=== PATIENT | female | born 1990 | race Caucasian/White ===

== ENCOUNTER 2017-01-02 23:06 | Emergency (ER) | payer OTHER ==
[~2017-01-02] VITALS: Ht 180.3 cm; Wt 122.5 kg
[~2017-01-02 23:06] MED LIST: BACTRIM DS TAB1 EACH PO; CEPHALEXIN500 MG PO; CHANTIX1 MG PO; GABAPENTIN300 MG PO; KEFLEX500 MG PO; NORCO 5-325 TA1 EACH PO; TUSSIN100 MG/51 PO; TYLENOL325 MG PO; VITAFOL-OB+DHA1 EACH PO; ZANTAC150 MG PO
[2017-01-03] MEDS ORDERED: TRAMADOL HCL50 MG PO (00:17)
[2017-01-03] MEDS ORDERED: CRUTCH1 EACH (00:18)
== END 2017-01-03 00:40 | disposition home or self-care (01) ==
LOC: ED 23:06
DX: S93.401A Sprain of unspecified ligament of right ankle, initial encounter (principal); F17.200 Nicotine dependence, unspecified, uncomplicated; X50.1XXA Overexertion from prolonged static or awkward postures, initial encounter; Z85.89 Personal history of malignant neoplasm of other organs and systems
CPT/HCPCS: 73610; 99283

== ENCOUNTER 2018-08-29 06:50 | Emergency (ER) | payer OTHER ==
[~2018-08-29] VITALS: Ht 182.9 cm; Wt 136.1 kg
--- OUTSIDE RECORDS SUMMARY | ~2018-08-29 | XMS | Clinical Summary ---
Demographics + + + | Address | [address] | | | [place] [address] | + + + | Home Phone | | + + + | Preferred Language | Unknown | + + + | Marital Status | Single | + + + | Temple Affiliation | 1013 | + + + | Race | Unknown | + + + | Ethnic Group | Unknown | + + + Author + + + | Author | [facility] | | | and [place] | + + + | Organization | [facility] | | | and [place] | + + + | Address | Unknown | + + + | Phone | Unavailable | + + + Support + + +---------+ + | Name | Relationship | Address | Phone | + + +---------+ + | Iban Ca | ECON | Unknown | | + + +---------+ + Care Team Providers + +------+ + | Care Imager Name | Role | Phone | + +------+ + | Beckie Mark MD | PP | Unavailable | + +------+ + Allergies No Known Allergies Current Medications + + +--------+---------+------+------+-------+ | Prescription | Sig. | Disp. | Refills | Star | End | Statu | | | | | | t | Date | s | | | | | | Date | | | + + +--------+---------+------+------+-------+ | | Take 1-2 tablets by | 15 | 0 | 03/2 | | Activ | | HYDROcodone-acetamin | mouth EVERY 4 TO 6 | tablet | | 9/20 | | e | | ophen (NORCO) 5-325 | HOURS NEEDED for | | | 16 | | | | mg per tablet | Pain. | | | | | | + + +--------+---------+------+------+-------+ Active Problems Not on file Social History + + + +--------+------+ | Tobacco Use | Types | Packs/Day | Years | Date | | | | | Used | | + + + +--------+------+ | Current Every Day | Cigarettes | 0.5 | 12 | | | Smoker | | | | | + + + +--------+------+ + +---+---+---+ | Smokeless Tobacco: | | | | | Never Used | | | | + +---+---+---+ + + +---------+ + | Alcohol Use | Drinks/We | oz/Week | Comments | | | ek | | | + + +---------+ + | Yes | | | Social. | + + +---------+ + + + + | Sex Assigned at | Date Recorded | | | | + + + | Not on file | | + + + Last Filed Vital Signs + + + + | Vital Sign | Reading | Time Taken | + + + + | Blood Pressure | 117/68 | 08/23/2015454 PDT | + + + + | Pulse | 65 | 08/23/2015454 PDT | + + + + | Temperature | 35.9 C (96.6 F) | 08/23/2015454 PDT | + + + + | Respiratory Rate | 18 | 08/23/2015454 PDT | + + + + | Oxygen Saturation | 91% | 08/23/2015454 PDT | + + + + | Inhaled Oxygen | - | - | | Concentration | | | + + + + | Weight | 117.9 kg (260 lb) | 08/23/2015331 PDT | + + + + | Height | 182.9 cm (6') | 08/23/2015331 PDT | + + + + | Body Mass Index | 35.26 | 08/23/2015 0332 PDT | + + + + Plan of Treatment + + + + + | Health Maintenance | Due Date | Last Done | Comments | + + + + + | Vaccine: | | | | | Dtap/Tdap/Td (1 - | 9 | | | | Tdap) | | | | + + + + + | Cervical Cancer | | | | | Screening (Pap) | 1 | | | + + + + + | Vaccine: Influenza | | | | | (#1) | 8 | | | + + + + + Results Not on filefrom Last 3 Months Insurance + +--------+ +--------+ +---------+ | Payer | Benefi | Subscriber | Type | Phone | Address | | | t Plan | ID | | | | | | / | | | | | | | Group | | | | | + +--------+ +--------+ +---------+ | [employer] | MODA | [id number] | Medica | [phone]- | | | MEDICAID HMO | HEALTH | | id | [id number] | | | | MDCD | | | | | | | [place]MO [place] | | | | | + +--------+ +--------+ +---------+ + +--------+ +--------+ + + | Guarantor Name | Accoun | Relation to | Date | Phone | Billing Address | | | t Type | Patient | of | | | | | | | | | | + +--------+ +--------+ + + | ARMANDO CHAPPELL | Person | Self [birth year] | Home: | [address] | | [place] | al/[place] | | 1990 | [phone] | [place] [address] | | | santos | | | [phone] | | + +--------+ +--------+ + +"
--- OUTSIDE RECORDS SUMMARY | ~2018-08-29 | XMS | Clinical Summary ---
Demographics + + + | Address | [address] | | | [place] [address] | + + + | Home Phone | | + + + | Preferred Language | Unknown | + + + | Marital Status | Single | + + + | Islam Affiliation | 1013 | + + + | Race | Unknown | + + + | Ethnic Group | Unknown | + + + Author + + + | Author | [facility] | | | and [place] | + + + | Organization | [facility] | | | and [place] [...] Team Providers + +------+ + | Care Filtrose Crusher Name | Role | Phone | + [...] | [employer] | MODA | [id number] | Medica | [phone]- | | | [...] | 1990 | [phone] | [place] [address] | | | santos | | | [phone] | | + +--------+ +--------+ + +"
[~2018-08-29 06:50] MED LIST changes: +CRUTCH1 EACH; +TRAMADOL HCL50 MG PO
[2018-08-29] MEDS ORDERED: ABILIFY10 MG PO (07:02)
[2018-08-29] MEDS ORDERED: DIFLUCAN200 MG PO (07:11)
== END 2018-08-29 07:25 | disposition home or self-care (01) ==
LOC: ED 06:50
DX: B37.9 Candidiasis, unspecified (principal); E11.9 Type 2 diabetes mellitus without complications; Z85.41 Personal history of malignant neoplasm of cervix uteri; F17.200 Nicotine dependence, unspecified, uncomplicated
CPT/HCPCS: 99282

== ENCOUNTER 2018-11-15 21:12 | Emergency (ER) | payer OTHER ==
[~2018-11-15] VITALS: Ht 182.9 cm; Wt 145.2 kg
[~2018-11-15 21:12] MED LIST changes: +ABILIFY10 MG PO; +DIFLUCAN200 MG PO
[2018-11-15] MEDS ORDERED: LATUDA20 MG (21:26)
[2018-11-15] MEDS ORDERED: DIFLUCAN100 MG PO (21:39)
== END 2018-11-15 21:52 | disposition home or self-care (01) ==
LOC: ED 21:12
DX: H10.9 Unspecified conjunctivitis (principal); L30.4 Erythema intertrigo; E11.9 Type 2 diabetes mellitus without complications; F17.200 Nicotine dependence, unspecified, uncomplicated; Z85.41 Personal history of malignant neoplasm of cervix uteri
CPT/HCPCS: 99283

== ENCOUNTER 2020-06-05 18:51 | Observation (INO) | payer OTHER ==
[~2020-06-05] VITALS: Ht 180.3 cm; Wt 145.6 kg
--- NOTE | ~2020-06-05 | HP ---
[facility] [address] [place], [place] [address] Draft ADMISSION DATE: 06/06/2020 CHIEF COMPLAINT: Abdominal cramping. HISTORY OF PRESENT ILLNESS: The patient presented to the ED complaining of lower abdominal cramping. She had been seen over the last 3 to 4 days as an outpatient at Dr. Mark's office for positive test without intrauterine identified. Her initial ultrasound was performed on June 02 and was significant for normal size and shape of uterus without intrauterine gestational sac. Endometrium was noted to be smooth and regular. Left ovary appears normal in size and shape and right ovary has 3.6 x 3.7 cm simple cyst. No free fluid was seen at that time. Her HCG measured 1887 on June 02 and on June 03 measured to be 2099. When she came in to the ED, the patient was a difficult historian and simply complained of pain and cramping. She was noted to be hemodynamically stable. It did take over 6 hours for blood work to be obtained. Her hemoglobin was noted to be 13.0 with a white cell count of 9.8. CMP was unremarkable except for glucose of 113 and quantitative HCG at that point was 2026. Urinalysis was performed, negative for urinary tact infection. Pelvic ultrasound was repeated and at this time intrauterine gestational sac was visualized measuring 7 weeks 3 days but was noted to be empty. Left ovary was normal in size and shape. Right ovary was noted to be 7 cm x 5 cm containing a 4.5 x 3.5 4.7 cm complex cyst consistent with a hemorrhagic cyst. There was also noted to be some free fluid in the pelvis with a clot in the right adnexal region measuring 4 cm x 2 cm. There is notably no structure consistent with ectopic , however, vascular flow could not be well seen to establish whether or not a right ovarian torsion was present. At the time workup was completed, the patient was complaining of fatigue and was difficult to arouse. Upon my exam, she was extremely difficult to arouse and HPI was extremely limited. She was responsive to her name with sternal rub and would be awake for 1 to 2 words before closing her eyes again. At that point, she only reported the cramping and that had brought her in. Hemoglobin was repeated in the morning and was noted to be stable with hemoglobin of 12.0, white cell count down to 6.4 consistent with dilutional effect and rehydration. Of note, her urine drug screen which is at around the morning to the evening sample was positive for marijuana, MDMA and both amphetamines and methamphetamines. 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 PAST MEDICAL HISTORY: Significant for remote history of ovarian cyst, treated with ovarian cystectomy, recurrent drug use, PTSD for which she reports being prescribed medical marijuana, incarceration most recently for drug use. PATIENT NAME: ARMANDO HACKETT HISTORY AND PHYSICAL DATE OF : 88 REPORT #: [id number] PHYSICIAN: MEHDI ANG DO PCP: JOSE MARK MD REPORT IS CONFIDENTIAL AND NOT TO BE RELEASED WITHOUT AUTHORIZATION [facility] [address] [place] [id number] Draft PAST SURGICAL HISTORY: Significant only for ovarian cystectomy. FAMILY HISTORY: Significant for paternal diabetes, end-stage renal failure, multisubstance abuse in both parents. REVIEW OF SYSTEMS: Positive for pelvic pain. Negative for vaginal bleeding and vaginal discharge. Negative for difficulty breathing, chest pain, shortness of breath, cough, fever, or chills. Negative for nausea, vomiting, constipation or diarrhea. Negative for dysuria, hematuria, urinary urgency or frequency. PHYSICAL EXAMINATION: GENERAL: Morbidly obese female, difficult to awaken. Appears stated age. HEENT: Normocephalic, atraumatic. External ocular motions are intact. Pupils constricted and reactive to light. NECK: Normal range of motion. No thyromegaly or lymphadenopathy. CARDIAC: Regular rate and rhythm. No clicks, murmurs or rubs. LUNGS: Clear to auscultation bilaterally. No wheeze, rhonchi or rales. ABDOMEN: Tender to palpation suprapubically, otherwise nontender. No rebound. No guarding. Exam limited by body habitus. PELVIC: Deferred due to the patient's level of consciousness and hemodynamic stability. EXTREMITIES: Peripheral pulses, intact radial and dorsalis pedis pulses. Negative bilateral lower extremity edema. NEURO: Oriented to self and place, not oriented to day of week. IMPRESSION: A 29-year-old G4, P1-0-2-1 with anembryonic , hemodynamically stable, HCG downtrending. Pain significantly improved per patient compared to arrival. Multisubstance abuse, per patient, she is trying to get clean. She last used methamphetamines on and discontinued when she found out that she was , uses THC for PTSD. Denies history of MDMA use. PLAN: Exam repeated over a course of several hours due to the patient's level of consciousness. She demonstrate as an improvement, awareness and was much more responsive to further questioning 6 hours after initial admission. She stated her pain was much more tolerable than when she had been in the ED and had not received any additional pain medications since admission from the ED. Discussed residual concern for bleeding hemorrhagic cyst versus ectopic and stressed the importance of close follow as an outpatient at Dr. Mark's office over the next few days. The patient verbalized PATIENT NAME: ARMANDO HACKETT HISTORY AND PHYSICAL DATE OF : [birth year] REPORT #: [id number] PHYSICIAN: MEHDI ANG DO PCP: JOSE MARK MD REPORT IS CONFIDENTIAL AND NOT TO BE RELEASED WITHOUT AUTHORIZATION [address], [place] [address] Draft understanding, agreement with plan and anticipate discharge to home in stable and improved condition later today. DO MADAN Romero/BENJA /[id number] Copies: ~ PATIENT NAME: ARMANDO HACKETT HISTORY AND PHYSICAL DATE OF : 88 REPORT #: [id number] PHYSICIAN: MEHDI ANG DO PCP: JOSE MARK MD REPORT IS CONFIDENTIAL AND NOT TO BE RELEASED WITHOUT AUTHORIZATION
[~2020-06-05 18:51] MED LIST changes: +CILOXAN5 ML OD; +DIFLUCAN100 MG PO; +LATUDA20 MG
--- OUTSIDE RECORDS SUMMARY | 2020-06-05 18:54 | XMS ---
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 event(s) in the past 18 months Most recent security events: Elopement at [facility] 01/04/2019 19:08 - Other Details: PATIENT LEFT AMA CRITERIA MET - Group Notification - [facility] - Has Care Guidelines - PDMP CARE PROVIDERS NANO HOLT Nurse Practitioner: Family 12/31/2018-Current PHONE: [phone] Care Guidelines exist for the following facilities: [facility] [place] ( 11/18/2018 ) Care History Medical/Surgical 01/06/2019 [facility] - EOIPA REFERRAL MADE- PATIENT HAS EOCCO-DOES NOT HAVE A PCP- DOES NOT UTILIZE THE WALK IN CLINIC FOR NON EMERGENT MEDICAL NEEDS. 12/31/2018 [facility] - Patient is currently established with [facility]. If patient is seen in the ED during business hours. Please contact CHWs at [facility]. Care Recommendation: This patient has had 5 or more Emergency Department visits in the last 12 months.\T\nbsp; Patient requires education on the scope and purpose of the ED as an acute care provider not a Primary Care Provider and should not be utilized for chronic conditions.\T\nbsp; These are guidelines and the provider should exercise clinical judgment when providing care. [place] VISIT COUNT (12 MO.) [address] Linette Johnson 1 [facility] [place] TOTAL 4 NOTE: Visits indicate total known visits. ED/UCC VISIT TRACKING (12 MO.) 06/05/2020 18:53 [facility] [place] TYPE: Emergency COMPLAINT: - CRAMPING 01/16/2020 17:30 [facility] [place] TYPE: Emergency DIAGNOSES: - Medication Refill - Contusion of left knee, initial encounter - knee pain 01/15/2020 22:15 [facility] Janessa MCDONNELL TYPE: Emergency DIAGNOSES: - Unspecified injury of left lower leg, initial encounter - Knee Injury - left knee pain, fall 12/27/2019 15:53 [facility] Janessa MCDONNELL TYPE: Emergency DIAGNOSES: - Other general symptoms and signs - ambulance bay-- fever; cough; sob INPATIENT VISIT TRACKING (12 MO.) No inpatient visits to display in this time frame [email or web address]
--- NOTE | 2020-06-06 04:15 | NUR ---
pt ARRIVED TO FLOOR. VERY DROWSY. ROUSED TO VOICE. ABLE TO TRANSFER SELF FROM STRETCHER TO BED. PROVIDED WARM BLANKET. VITALS DONE. IN ROOM TO COMPLETE ASSESSMENT.
--- NOTE | 2020-06-06 05:40 | NUR ---
pt VERY DROWSY REQUIRED CONSTANT VERBAL STIMULI TO MAINTAIN CONVERSATION. DID NOT ANSWER MOST QUESTIONS. KEPT FALLING BACK TO SLEEP. pt RATED PAIN 8/10, PUPILS SMALL, REACTIVE TO LIGHT. IVF INFUSING PER ORDERS. CALL LIGHT WITHIN REACH.
--- NOTE | 2020-06-06 06:50 | NUR ---
ROUNDED ON pt. RESTING IN BED WITH EYES CLOSED, RESPIRATIONS REGULAR AND LABORED. CALL LIGHT WITHIN REACH.
--- NOTE | 2020-06-06 07:25 | NUR ---
BEDSIDE HANDOFF REPORT RECEIVED FROM CERTIFIED OPHTHALMIC ASSISTANT RN. PT EXTREMELY DROWSY. DR. ANG TO BEDSIDE, VERBAL ORDER FRO STAT HEMOGRAM. PLAN TO RE-EVALUATE PT LATER AND PERFORM PELVIC EXAM WHEN PT IS MORE ALERT.
--- NOTE | 2020-06-06 08:35 | NUR ---
PT CONTINUES TO BE EXTREMELY DROWSY, WILL RESPOND AFTER SEVERAL VERBAL ATTEMPTS TO WAKE UP. PT ON ROOM AIR, LUNG SOUNDS CLEAR. PT DENIES NAUSEA, BOWEL TONES ACTIVE. PT RECEIVING LR AT 125ML/HR, NPO AT THIS TIME. CMS INTACT, WITHOUT EDEMA. BP 108/44, HR 72. CALL PLACED TO DR. ANG TO REPORT BP AND DRUG SCREEN RESULTS, NO NEW ORDERS AT THIS TIME.
--- NOTE | 2020-06-06 08:38 | NUR ---
PATIENT RESTING IN BED, EYES CLOSED. RN AT BEDSIDE FOR ASSESSMENT. PATIENT UNABLE TO KEEP EYES OPEN LONGER THAN COUPLE SECONDS. VERY DELAYED IN ANSWERING RNS QUESTIONS.
--- NOTE | 2020-06-06 10:04 | NUR ---
PATIENT RESTING IN BED, EYES CLOSED, ROUSED TO VOICE. VITALS CHARTED. PATIENT UNABLE TO KEEP EYES OPEN, REQUIRES REPEATED VERBAL COMANDS. PATIENT STILL DENIES NEED FOR TOILET, CALL LIGHT IN REACH
--- NOTE | 2020-06-06 11:07 | NUR ---
KYLEE DOYLE SUGGESTED I COME BACK LATER. PT HAVING DIFFICULTY STAYING AWAKE. WILL FOLLOW
--- NOTE | 2020-06-06 12:09 | NUR ---
PT CONTINUES TO BE DROWSY, AROUSABLE TO VOICE, PT DENIES PAIN. PT DENIES NEEDS AT THIS TIME.
== END 2020-06-06 14:28 | disposition home or self-care (01) ==
LOC: ED 18:51 → MS 18:54
PROVIDERS: ADMIT Obstetrics & Gynecology; ATTEND Obstetrics & Gynecology
DX: O02.0 Blighted ovum and nonhydatidiform mole (principal); O08.9 Unspecified complication following an ectopic and molar pregnancy; O99.321 Drug use complicating pregnancy, first trimester; F19.10 Other psychoactive substance abuse, uncomplicated; O99.211 Obesity complicating pregnancy, first trimester; E66.01 Morbid (severe) obesity due to excess calories; O99.331 Smoking (tobacco) complicating pregnancy, first trimester; F17.200 Nicotine dependence, unspecified, uncomplicated; F43.10 Post-traumatic stress disorder, unspecified; Z98.890 Other specified postprocedural states; Z20.822 Contact with and (suspected) exposure to COVID-19; O09.291 Supervision of pregnancy with other poor reproductive or obstetric history, first trimester; O26.21 Pregnancy care for patient with recurrent pregnancy loss, first trimester; Z3A.01 Less than 8 weeks gestation of pregnancy; Z87.42 Personal history of other diseases of the female genital tract
CPT/HCPCS: 36415; 76801; 76817; 80053; 81001; 84702; 85025; 85027; 87491; 87591; 96374; 99285-25; C9803; G0378; J1170; J7030; J7121; U0003

== ENCOUNTER 2021-06-10 02:36 | Emergency (ER) | payer OTHER ==
[~2021-06-10] VITALS: Ht 182.9 cm; Wt 156.2 kg
--- OUTSIDE RECORDS SUMMARY | 2021-06-10 02:38 | XMS ---
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 CRITERIA MET - Group Notification CARE PROVIDERS NANO HOLT Nurse Practitioner: 12/31/2018-Current PHONE: Unknown Care Guidelines exist for the following facilities: [facility] ( 07/11/2020 ) [place] VISIT COUNT (12 MO.) [address] [facility] [address] TOTAL 3 NOTE: Visits indicate total known visits. ED/UCC VISIT TRACKING (12 MO.) 06/10/2021 02:37 [facility] [place] TYPE: Emergency COMPLAINT: - VOMITING 02/23/2021 14:[address] [facility]: Emergency DIAGNOSES: - right arm pain, water retention - Procedure and treatment not carried out due to patient leaving prior to being seen by health care provider - Wrist Pain - Leg Swelling 08/02/2020 14:[address] [facility] [facility] [place] TYPE: Emergency COMPLAINT: - SWOLLEN R MIDDLE FINGER INPATIENT VISIT TRACKING (12 MO.) No inpatient visits to display in this time frame [email or web address]
[2021-06-10] MEDS ORDERED: ONDANSETRON ODT8 MG PO (03:57)
== END 2021-06-10 04:17 | disposition home or self-care (01) ==
LOC: ED 02:36
DX: R11.2 Nausea with vomiting, unspecified (principal); Z85.41 Personal history of malignant neoplasm of cervix uteri; F17.200 Nicotine dependence, unspecified, uncomplicated; Z88.1 Allergy status to other antibiotic agents
CPT/HCPCS: 99283; A9270

== ENCOUNTER 2022-01-14 22:15 | Emergency (ER) | payer OTHER ==
[~2022-01-14] VITALS: Ht 182.9 cm; Wt 156.0 kg
[~2022-01-14 22:15] MED LIST changes: +ONDANSETRON ODT8 MG PO
--- OUTSIDE RECORDS SUMMARY | 2022-01-14 22:18 | XMS ---
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 CRITERIA MET - Group Notification CARE PROVIDERS NANO HOLT Nurse Practitioner: 12/31/2018-Current PHONE: Unknown Care Guidelines exist for the following facilities: [facility] ( 07/11/2020 ) [place] VISIT COUNT (12 MO.) 2 [facility] 1 [facility] [address] [facility] 2 [facility] TOTAL 6 NOTE: Visits indicate total known visits. ED/UCC VISIT TRACKING (12 MO.) 01/14/2022 22:16 [facility] [place] TYPE: Emergency COMPLAINT: - DENTAL PAIN 18WKS [facility]: Emergency DIAGNOSES: - Periorbital cellulitis - eye problem - Unspecified conjunctivitis - Encounter for supervision of normal , unspecified, second trimester 10/07/2021 20:59 [facility] TYPE: Emergency COMPLAINT: - lower back pain DIAGNOSES: - Back Pain - lower back pain 10/04/2021 18:32 [facility] TYPE: Emergency COMPLAINT: - Medical clearance - - baby has not moved in a few days DIAGNOSES: - Medical clearance - - baby has not moved in a few days - Encounter for supervision of normal , unspecified, unspecified trimester - Abdominal Cramping 06/10/2021 02:37 [facility] [place] TYPE: Emergency COMPLAINT: - VOMITING DIAGNOSES: - Allergy status to other antibiotic agents - Nicotine dependence, unspecified, uncomplicated - Personal history of malignant neoplasm of cervix uteri - Nausea with vomiting, unspecified 02/23/2021 14[facility]07 [facility] Emergency DIAGNOSES: - Wrist Pain - right arm pain, water retention - Leg Swelling - Procedure and treatment not carried out due to patient leaving prior to being seen by health care provider INPATIENT VISIT TRACKING (12 MO.) No inpatient visits to display in this time frame [id number]
[2022-01-14] MEDS ORDERED: PENICILLIN V P500 MG PO (22:33)
== END 2022-01-14 22:45 | disposition home or self-care (01) ==
LOC: ED 22:15
DX: O99.891 Other specified diseases and conditions complicating pregnancy (principal); K04.7 Periapical abscess without sinus; F17.200 Nicotine dependence, unspecified, uncomplicated; Z88.1 Allergy status to other antibiotic agents; Z3A.18 18 weeks gestation of pregnancy

== ENCOUNTER 2022-04-18 06:00 | Inpatient (IN) | payer OTHER ==
[~2022-04-18] VITALS: Ht 182.9 cm; Wt 169.6 kg
[~2022-04-18 06:00] MED LIST changes: +PENICILLIN V P500 MG PO
--- NOTE | 2022-04-18 15:14 | PR ---
[facility] [address], [place] [address] Signed Progress Notes IP Datetime Report Generated by CPN: 04/18/2022 15:14 PROGRESS NOTES: [id number] Impression: Normal Progression of Labor; Reassuring Heart Rate Procedures: Artificial ROM; Intrauterine Pressure Catheter; Scalp Electrode; Sterile Vag Exam Plan: Continue Present Management; Anticipate Vaginal Delivery Informed Consent Obtain: Vaginal Delivery VITAL SIGNS: [id number] Vital Signs: Reviewed; Within Normal Limits EXAM: [id number] Dilatation: 8.0 Effacement: 90 Station: -1 Contractions: not well picked up MEMBRANES: [id number] Comments: Pt seen and examined. Comfortable w/ epidural and intermittently sleeping between contractions. Pt reports that she thinks her "water might have broke a few days ago" but she is unsure as she is "always wet down there." RN requesting internals to aid intrapartum monitoring. No other questions or concerns. On exam, bulging membranes noted. After verbal consent obtained and vertex noted to be well applied, AROM easily performed for moderate amount of clear fluid. IUPC and FSE placed w/out difficulty. Anticipate FETUS A: [id number] FHR Baseline: 150 Variability: Minimal - >Undetectable to <=5bpm Accelerations: 10X10 FHR Category: Category II Presentation: Vertex Comments on Fetus A: not well monitored FETUS B: [id number] Signing Physician: Vamsi Jaimes DO Copies: ~ *Electronically Signed* 04/18/22 6189 VAMSI JAIMES (MARK) DO PATIENT NAME: ARMANDO HACKETT PROGRESS NOTE DATE OF : 88 PHYSICIAN: VAMSI JAIMES (JD) DO RPT #: [id number] REPORT IS CONFIDENTIAL AND NOT TO BE RELEASED WITHOUT AUTHORIZATION
--- NOTE | 2022-04-18 16:23 | PR ---
[facility] [address] [facility] [place], [place] [address] Signed Progress Notes IP Datetime Report Generated by CPN: 04/18/2022 16:23 PROGRESS NOTES: [id number] Impression: Normal Progression of Labor Procedures: Sterile Vag Exam Plan: Augmentation Informed Consent Obtain: Vaginal Delivery VITAL SIGNS: [id number] Vital Signs: Reviewed; Within Normal Limits EXAM: [id number] Dilatation: 8.0 Effacement: 90 Station: -1 Contractions: not well picked up MEMBRANES: [id number] Comments: Slow progress. I feel augmentation is needed with IV pitocin. FETUS A: [id number] FHR Baseline: 150 Variability: Minimal - >Undetectable to <=5bpm Accelerations: 10X10 FHR Category: Category II Presentation: Vertex Comments on Fetus A: not well monitored FETUS B: [id number] Signing Physician: Beckie Mark MD Copies: ~ *Electronically Signed* 04/18/22 1623 BECKIE MARK MD PATIENT NAME: ARMANDO HACKETT PROGRESS NOTE DATE OF : 88 PHYSICIAN: BECKIE MARK MD RPT #: [id number] REPORT IS CONFIDENTIAL AND NOT TO BE RELEASED WITHOUT AUTHORIZATION
--- NOTE | 2022-04-18 17:40 | PR ---
[facility] [address] [facility] [place], [place] [address] Signed Progress Notes IP Datetime Report Generated by CPN: 04/18/2022 17:40 PROGRESS NOTES: [id number] Impression: Normal Progression of Labor Procedures: Sterile Vag Exam Plan: Anesthesia Consult Informed Consent Obtain: Vaginal Delivery VITAL SIGNS: [id number] Vital Signs: Reviewed; Within Normal Limits EXAM: [id number] Dilatation: 9.0 Effacement: 90 Station: -1 Contractions: not well picked up MEMBRANES: [id number] Comments: Progressing. Will continue with redose of epidural. FETUS A: [id number] FHR Baseline: 150 Variability: Minimal - >Undetectable to <=5bpm Accelerations: 10X10 FHR Category: Category II Presentation: Vertex Comments on Fetus A: not well monitored FETUS B: [id number] Signing Physician: Beckie Mark MD Copies: ~ *Electronically Signed* 04/18/22 3228 BECKIE MARK MD PATIENT NAME: ARMANDO HACKETT PROGRESS NOTE DATE OF : 88 PHYSICIAN: BECKIE MARK MD RPT #: [id number] REPORT IS CONFIDENTIAL AND NOT TO BE RELEASED WITHOUT AUTHORIZATION
--- NOTE | 2022-04-18 18:39 | PR ---
[facility] [address] [facility] [place], [place] [address] Signed Progress Notes IP Datetime Report Generated by JOSEPH: 04/18/2022 18:39 PROGRESS NOTES: [id number] Impression: Reassuring Heart Rate Procedures: Sterile Vag Exam Plan: Anesthesia Consult Informed Consent Obtain: Vaginal Delivery VITAL SIGNS: [id number] Vital Signs: Reviewed; Within Normal Limits EXAM: [id number] Dilatation: 9.0 Effacement: 90 Station: -1 Contractions: not well picked up MEMBRANES: [id number] Comments: Still very uncomfortable. Will have anesthesia reassess. Also, she is now arnaldo very frequently and will stop pitocin. Jones bulb also seems quite large and will remove some of the fluid FETUS A: [id number] FHR Baseline: 150 Variability: Minimal - >Undetectable to <=5bpm Accelerations: 10X10 FHR Category: Category II Presentation: Vertex Comments on Fetus A: not well monitored FETUS B: [id number] Signing Physician: Beckie Mark MD Copies: ~ *Electronically Signed* 04/18/22 1839 BECKIE MARK MD PATIENT NAME: ARMANDO HACKETT PROGRESS NOTE DATE OF : 88 PHYSICIAN: BECKIE MARK MD RPT #: [id number] REPORT IS CONFIDENTIAL AND NOT TO BE RELEASED WITHOUT AUTHORIZATION
--- NOTE | 2022-04-19 07:27 | PR ---
[facility] [address] [place], [place] [address] Signed PP Progress Notes Datetime Report Generated by CPN: 04/19/2022 07:26 SUBJECTIVE: [id number] Pain: Within Normal Limits Vital Signs: [id number] Vital Signs: Reviewed Notable Details: Tmax 101.8 Cardiovascular: Not Done Respiratory: Not Done Abdomen/Uterus: Abnormal Lochia: Not Done Vulva/Perineum: Not Done Breasts: Not Done CVA Tenderness: Not Done Extremities: Normal Incision: Not Applicable Progress: Not Applicable Exam Comments: Fundus firm, NT @ U. H/H 11.1/13.1, WBC 7.7, plat 208k IMPRESSION/PLAN/PROCEDURES: [id number] Impression: Normal Progression; Increased Temperature Other Impression: very difficult to arouse Plan: Continue Present Management Procedures: None Progress Notes: Very difficult to arouse and has not cared for the baby overnight. Her temp was elevated and with hx of UTI Ancef was ordered but U/A looks OK and temp improved. Will resume her prior course of Keflex for her UTI. Signing Physician: Beckie Mark MD Copies: ~ *Electronically Signed* 04/19/22725 BECKIE MARK MD PATIENT NAME: ARMANDO HACKETT PROGRESS NOTE DATE OF : 88 PHYSICIAN: BECKIE MARK MD RPT #: [id number] REPORT IS CONFIDENTIAL AND NOT TO BE RELEASED WITHOUT AUTHORIZATION
--- NOTE | 2022-04-20 08:11 | PR ---
[facility] [address] [place], [place] [address] Signed PP Progress Notes Datetime Report Generated by CPN: 04/20/2022 08:11 SUBJECTIVE: [id number] Pain: Within Normal Limits Vital Signs: [id number] Vital Signs: Reviewed; Within Normal Limits Notable Details: Tmax 101.8 Cardiovascular: Not Done Respiratory: Not Done Abdomen/Uterus: Abnormal Lochia: Normal Vulva/Perineum: Not Done Breasts: Not Done CVA Tenderness: Not Done Extremities: Normal Incision: Not Applicable Progress: Not Applicable Exam Comments: Fundus firm, NT @ U-1. IMPRESSION/PLAN/PROCEDURES: [id number] Impression: Normal Progression Other Impression: very difficult to arouse Plan: Discharge Procedures: Antibiotics Progress Notes: Doing well without further fever. She now states she has been using buprenorphine off and on as needed. She does not know the dose of the medication. She is otherwise ready for D/C though baby will remain for further observation. Signing Physician: Beckie Mark MD Copies: ~ *Electronically Signed* 04/20/22810 BECKIE MARK MD PATIENT NAME: ARMANDO HACKETT PROGRESS NOTE DATE OF : 88 PHYSICIAN: BECKIE MARK MD RPT #: [id number] REPORT IS CONFIDENTIAL AND NOT TO BE RELEASED WITHOUT AUTHORIZATION
== END 2022-04-20 08:30 | disposition home or self-care (01) | DRG 806 ==
LOC: FBCO 06:00 → FBC 06:20
PROVIDERS: ADMIT Obstetrics & Gynecology; ATTEND Obstetrics & Gynecology
PROC: 10E0XZZ Delivery of Products of Conception, External Approach (ICD-10-PCS; principal; 2022-04-18)
PROC: 10H07YZ Insertion of Other Device into Products of Conception, Via Natural or Artificial Opening (ICD-10-PCS; 2022-04-18)
PROC: 10907ZC Drainage of Amniotic Fluid, Therapeutic from Products of Conception, Via Natural or Artificial Opening (ICD-10-PCS; 2022-04-18)
PROC: 00HU33Z Insertion of Infusion Device into Spinal Canal, Percutaneous Approach (ICD-10-PCS; 2022-04-18)
PROC: 3E0R3BZ Introduction of Anesthetic Agent into Spinal Canal, Percutaneous Approach (ICD-10-PCS; 2022-04-18)
DX: O60.13X0 Preterm labor second trimester with preterm delivery third trimester, not applicable or unspecified (principal); O23.43 Unspecified infection of urinary tract in pregnancy, third trimester; Z37.0 Single live birth; O99.324 Drug use complicating childbirth; O99.824 Streptococcus B carrier state complicating childbirth; F12.90 Cannabis use, unspecified, uncomplicated; F15.90 Other stimulant use, unspecified, uncomplicated; Z20.822 Contact with and (suspected) exposure to COVID-19; Z67.20 Type B blood, Rh positive; Z3A.36 36 weeks gestation of pregnancy; O99.334 Smoking (tobacco) complicating childbirth; F17.210 Nicotine dependence, cigarettes, uncomplicated; O99.214 Obesity complicating childbirth; E66.01 Morbid (severe) obesity due to excess calories
CPT/HCPCS: 36415; 81001; 81003; 85027; 86850; 86900; 86901; 87502; A9270; J0690; J2274; J2405; J2540; J2590; J2795; J3010; J7121; U0003

== ENCOUNTER 2023-10-06 23:07 | Emergency (ER) | payer OTHER ==
[~2023-10-06] VITALS: Ht 185.4 cm; Wt 159.5 kg
[2023-10-06] MEDS ORDERED: DIPHTH,PERTUSS(ACELL),TET VAC 0.5 ML SYRINGE IM ONE (23:30)
[2023-10-06] MEDS ORDERED: TETANUS-DIPHTHERIA TOXOIDS/PF 0.5 ML VIAL IM ONE (23:30)
--- OUTSIDE RECORDS SUMMARY | 2023-10-06 23:52 | XMS ---
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 ED/UCC VISIT TRACKING (12 MO.) 10/06/2023 23:08 [facility] [place] TYPE: Emergency COMPLAINT: - LEFT ANKLE INJURY INPATIENT VISIT TRACKING (12 MO.) No inpatient visits to display in this time frame [id number]
[2023-10-07 00:13] VITALS: BP 154/92
== END 2023-10-07 00:14 | disposition home or self-care (01) ==
LOC: ED 23:07
DX: S90.511A Abrasion, right ankle, initial encounter (principal); M25.572 Pain in left ankle and joints of left foot; F17.200 Nicotine dependence, unspecified, uncomplicated; W26.8XXA Contact with other sharp object(s), not elsewhere classified, initial encounter; Z23 Encounter for immunization; Z88.1 Allergy status to other antibiotic agents
CPT/HCPCS: 73610; 90715

== ENCOUNTER 2024-02-03 20:27 | Emergency (ER) | payer OTHER ==
[~2024-02-03] VITALS: Ht 185.4 cm; Wt 156.4 kg
--- OUTSIDE RECORDS SUMMARY | 2024-02-03 20:34 | XMS ---
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 No recent Security Events currently on file CRITERIA MET - Group Notification CARE PROVIDERS NANO HOLT Nurse Practitioner: Family 12/31/2018-Current PHONE: Unknown -Colette+ Dentist: Sponge Buffer [facility] [place][Note 2] PHONE: [phone] -[facility]: Sponge Buffer [facility] PHONE: [phone] [facility]/Center: [facility] Current \F\ [facility] PHONE: [phone] Care Guidelines exist for the following facilities: [facility] ( 11/18/2018 ) [place] VISIT COUNT (12 MO.) [address] [facility] TOTAL 2 NOTE: Visits indicate total known visits. ED/UCC VISIT TRACKING (12 MO.) 02/03/2024 20:28 [facility] [place] TYPE: Emergency COMPLAINT: - ALLERGIC REACTION 10/06/2023 23:08 [facility] [place] TYPE: Emergency COMPLAINT: - LEFT ANKLE INJURY DIAGNOSES: - Abrasion, right ankle, initial encounter - Allergy status to other antibiotic agents - Contact with other sharp object(s), not elsewhere classified, initial encounter - Encounter for immunization - Nicotine dependence, unspecified, uncomplicated - Pain in left ankle and joints of left foot INPATIENT VISIT TRACKING (12 MO.) No inpatient visits to display in this time frame [email or web address]
[2024-02-03] MEDS ORDERED: TETRACAINE HCL 0.5% 4 ML BTL OU SCH (22:15)
[2024-02-03] MEDS ORDERED: POLYMYXIN B-TMP10 ML OPTH (22:15)
[2024-02-03 22:42] VITALS: BP 155/83
== END 2024-02-03 22:43 | disposition home or self-care (01) ==
LOC: ED 20:27
DX: H10.9 Unspecified conjunctivitis (principal); F17.200 Nicotine dependence, unspecified, uncomplicated; Z88.1 Allergy status to other antibiotic agents
CPT/HCPCS: 99283

== ENCOUNTER 2024-08-03 17:20 | Emergency (ER) | payer OTHER ==
[~2024-08-03] VITALS: Ht 185.4 cm; Wt 154.7 kg
[~2024-08-03 17:20] MED LIST changes: +POLYMYXIN B-TMP10 ML OPTH
--- OUTSIDE RECORDS SUMMARY | 2024-08-03 17:27 | XMS ---
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/Center: [facility] Current [facility] PHONE: [phone] Care Guidelines exist for the following facilities: [facility] ( 11/18/2018 ) [place] VISIT COUNT (12 MO.) 3 [facility] TOTAL 3 NOTE: Visits indicate total known visits. ED/UCC VISIT TRACKING (12 MO.) 08/03/2024 17:20 [facility] [place] TYPE: Emergency COMPLAINT: - SPIDER BITE 02/03/2024 20:28 [facility] [place] TYPE: Emergency COMPLAINT: - ALLERGIC REACTION DIAGNOSES: - Allergy status to other antibiotic agents - Nicotine dependence, unspecified, uncomplicated - Unspecified conjunctivitis 10/06/2023 23:08 [facility] [place] TYPE: Emergency [...] visits to display in this time frame [id number]
[2024-08-03] MEDS ORDERED: ACETAMINOPHEN 500 MG TAB PO ONE (18:00)
[2024-08-03 20:12] VITALS: BP 131/77
[2024-08-04] MEDS ORDERED: TRAMADOL HCL50 MG PO (20:11)
[2024-08-04] MEDS ORDERED: HIBICLENS118 ML TOP (20:35)
== END 2024-08-03 20:12 | disposition left against medical advice (07) ==
LOC: ED 17:20
DX: T63.301A Toxic effect of unspecified spider venom, accidental (unintentional), initial encounter (principal); Z53.21 Procedure and treatment not carried out due to patient leaving prior to being seen by health care provider
CPT/HCPCS: A9270

== ENCOUNTER 2024-08-04 19:10 | Emergency (ER) | payer OTHER ==
[~2024-08-04] VITALS: Ht 185.4 cm; Wt 154.7 kg
--- OUTSIDE RECORDS SUMMARY | 2024-08-04 19:17 | XMS ---
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 ED/UCC VISIT TRACKING (12 MO.) 08/04/2024 19:11 [facility] [place] TYPE: Emergency COMPLAINT: - SPIDER BITE 08/03/2024 17:20 [facility] [place] TYPE: Emergency COMPLAINT: - SPIDER BITE DIAGNOSES: - Encounter for change or removal of nonsurgical wound dressing - Procedure and treatment not carried out due to patient leaving prior to being seen by health care provider - Toxic effect of unspecified spider venom, accidental (unintentional), initial encounter 02/03/2024 20:28 [facility] [place] TYPE: Emergency [...] visits to display in this time frame [id number]
[2024-08-04] MEDS ORDERED: TRAMADOL HCL50 MG PO (20:11)
[2024-08-04] MEDS ORDERED: TRAMADOL HCL 50 MG HOME.PACK PO ONE (20:15)
[2024-08-04] MEDS ORDERED: DOXYCYCLINE HYCLATE 100 MG HOME.PACK PO ONE (20:15)
[2024-08-04] MEDS ORDERED: HIBICLENS118 ML TOP (20:35)
[2024-08-04 20:36] VITALS: BP 149/92
== END 2024-08-04 20:40 | disposition home or self-care (01) ==
LOC: ED 19:10
DX: L03.319 Cellulitis of trunk, unspecified (principal); L02.219 Cutaneous abscess of trunk, unspecified; F17.200 Nicotine dependence, unspecified, uncomplicated; Z88.1 Allergy status to other antibiotic agents
CPT/HCPCS: 99282; A9270

== ENCOUNTER 2024-12-09 02:29 | Emergency (ER) | payer OTHER ==
[~2024-12-09] VITALS: Ht 185.4 cm; Wt 154.7 kg
[~2024-12-09 02:29] MED LIST changes: +HIBICLENS118 ML TOP
--- OUTSIDE RECORDS SUMMARY | 2024-12-09 02:32 | XMS ---
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 ED/UCC VISIT TRACKING (12 MO.) 12/09/2024 02:30 [facility] [place] TYPE: Emergency COMPLAINT: - SKIN ISSUE 08/04/2024 19:11 [facility] [place] TYPE: Emergency COMPLAINT: - SPIDER BITE DIAGNOSES: - Allergy status to other antibiotic agents - Cellulitis of trunk, unspecified - Cutaneous abscess of trunk, unspecified - Nicotine dependence, unspecified, uncomplicated 08/03/2024 17:20 [facility] [place] TYPE: Emergency [...] Nicotine dependence, unspecified, uncomplicated - Unspecified conjunctivitis INPATIENT VISIT TRACKING (12 MO.) No inpatient visits to display in this time frame [id number]
[2024-12-09] MEDS ORDERED: SUBLOCADE300 MG/1.5 SQ (02:44)
[2024-12-09] MEDS ORDERED: BUPRENORPHINE-1 EACH SL (02:44)
[2024-12-09] MEDS ORDERED: NEOMYCIN/POLYMYXIN/HYDROCORT 10 ML HOME.PACK OTIC ONE (03:00)
[2024-12-09] MEDS ORDERED: FUROSEMIDE 40 MG TAB PO ONE (03:00)
[2024-12-09] MEDS ORDERED: DOXYCYCLINE HYCLATE 100 MG HOME.PACK PO ONE (03:00)
[2024-12-09] MEDS ORDERED: IBUPROFEN 600 MG TAB PO ONE (03:00)
[2024-12-09] MEDS ORDERED: LASIX20 MG PO (03:03)
[2024-12-09 03:22] VITALS: BP 169/94
== END 2024-12-09 03:24 | disposition home or self-care (01) ==
LOC: ED 02:29
DX: L02.413 Cutaneous abscess of right upper limb (principal); R60.0 Localized edema; H60.91 Unspecified otitis externa, right ear; F17.200 Nicotine dependence, unspecified, uncomplicated; Z88.1 Allergy status to other antibiotic agents; Z79.899 Other long term (current) drug therapy
CPT/HCPCS: 99283; A9270

== ENCOUNTER 2025-04-09 17:28 | Emergency (ER) | payer OTHER ==
[~2025-04-09] VITALS: Ht 182.9 cm; Wt 147.2 kg
[~2025-04-09 17:28] MED LIST changes: +BUPRENORPHINE-1 EACH SL; +LASIX20 MG PO; +SUBLOCADE300 MG/1.5 SQ
--- OUTSIDE RECORDS SUMMARY | 2025-04-09 17:29 | XMS ---
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 No recent Security Events currently on file CRITERIA MET - Group Notification - PDMP - [facility] - 2 Visits in 30 Days CARE PROVIDERS NANO HOLT Nurse Practitioner: 12/31/2018-Current PHONE: [phone] -, [facility] Dentist: Corporate Responsibility Officer Current [place] PHONE: [phone] [facility]/Center: [facility] Current FAMILY PHONE: [phone] Care Guidelines exist for the following facilities: [facility] ( 11/18/2018 ) [place] VISIT COUNT (12 MO.) 5 [facility] [place] TOTAL 5 NOTE: Visits indicate total known visits. ED/UCC VISIT TRACKING (12 MO.) 04/09/2025 17:28 [facility] [place] TYPE: Emergency COMPLAINT: - SKIM PROBLEM 04/08/2025 20:04 [facility] [place] TYPE: Emergency COMPLAINT: - SKIN PROBLEM 12/09/2024 02:30 [facility] [place] TYPE: Emergency COMPLAINT: - SKIN ISSUE DIAGNOSES: - Allergy status to other antibiotic agents - Cutaneous abscess of right upper limb - Localized edema - Nicotine dependence, unspecified, uncomplicated - Other long-term (current) drug therapy - Other specified soft tissue disorders - Unspecified otitis externa, right ear 08/04/2024 19:11 [facility] [place] TYPE: Emergency [...] unspecified spider venom, accidental (unintentional), initial encounter INPATIENT VISIT TRACKING (12 MO.) No inpatient visits to display in this time frame [email or web address]
[2025-04-09] MEDS ORDERED: HYDROmorphone HCL 1 MG/ML SYR IV PRN (18:00)
[2025-04-09] MEDS ORDERED: KETOROLAC TROMETHAMINE 30 MG/ML VIAL IV ONE (18:00)
[2025-04-09 18:10] LABS: BASOPHILS 0.6 % (0.1-1.2); EOSINOPHILS 3.6 % (0.7-5.8); LYMPHOCYTES 20.3 % (19.3-51.7); MCH 25.9 PG (25.6-32.2); MCHC 32.1 g/dL (32.2-35.5); MCV 80.7 fL (79.4-94.8); MONOCYTES 6.0 % (4.7-12.5); NEUTROPHILS 69.3 % (34.0-71.1); RBC 5.13 M/uL (3.93-5.22)
[2025-04-09] MEDS ORDERED: PEG3350510 GM (18:19)
[2025-04-09 18:25] LABS: ALT (SGPT) 38.0 U/L (14-59); AST (SGOT) 17.0 U/L (15-37); GLOMERULAR FILTRATION RATE,EST 102.0 mL/min (>60); PROTEIN, TOTAL 7.8 g/dL (6.4-8.2); UREA NITROGEN 12.0 mg/dL (7-18)
[2025-04-09] MEDS ORDERED: CEPHALEXIN500 M1 PO (19:11)
[2025-04-09 19:17] VITALS: BP 144/90
== END 2025-04-09 19:25 | disposition home or self-care (01) ==
LOC: ED 17:28
PROVIDERS: Emergency Medicine
DX: L02.411 Cutaneous abscess of right axilla (principal); L03.111 Cellulitis of right axilla; F17.200 Nicotine dependence, unspecified, uncomplicated; Z79.899 Other long term (current) drug therapy; Z88.1 Allergy status to other antibiotic agents
CPT/HCPCS: 10060; 36415; 80053; 83036; 84703; 85025; 87070; 87075; 87186; 87205; 96365; 96375; 99283-25; J0696; J1171; J1885